=== PATIENT | male | born 2000 | race Caucasian/White ===

== ENCOUNTER 2019-06-08 01:06 | Inpatient (IN) | payer OTHER ==
[~2019-06-08] VITALS: Ht 175.3 cm; Wt 88.6 kg
[2019-06-08 02:19] LABS: HEMATOCRIT 48.2 % (42.0-52.0); HEMOGLOBIN 15.7 g/dl (13.5-17.5); MEAN CORPUSCULAR HEMOGLOBIN 28.9 pg (27.0-33.0); MEAN CORPUSCULAR HGB CONC 32.6 g/dl (32.0-36.5); MEAN CORPUSCULAR VOLUME 88.6 fl (80.0-96.0); PLATELET COUNT, AUTOMATED 244 10^3/uL (150-450); RED BLOOD COUNT 5.44 10^6/uL (4.30-6.10); WHITE BLOOD COUNT 9.1 10^3/uL (4.0-10.0)
[2019-06-08 03:10] LABS: ACETAMINOPHEN LEVEL < 2.0 UG/ML (10.0-30.0); ALBUMIN 4.4 GM/DL (3.2-5.2); ALT/SGPT 40 U/L (12-78); BILIRUBIN,DIRECT 0.2 MG/DL (0.0-0.2); BILIRUBIN,TOTAL 0.7 MG/DL (0.2-1.0); BLOOD UREA NITROGEN 8 MG/DL (7-18); CALCIUM LEVEL 9.1 MG/DL (8.5-10.1); CARBON DIOXIDE LEVEL 25 MEQ/L (21-32); CHLORIDE LEVEL 107 MEQ/L (98-107); CREATININE FOR GFR 0.85 MG/DL (0.70-1.30); ETHYL ALCOHOL (ETHANOL) < 0.003 % (0.000-0.010); GLOMERULAR FILTRATION RATE > 60.0 (>60); GLUCOSE, FASTING 99 MG/DL (70-100); POTASSIUM SERUM 4.2 MEQ/L (3.5-5.1); SODIUM LEVEL 140 MEQ/L (136-145); TOTAL PROTEIN 8.1 GM/DL (6.4-8.2)
[2019-06-08 07:25] LABS: AMPHETAMINES LEVEL URINE NEGATIVE (NEGATIVE); BARBITURATES URINE NEGATIVE (NEGATIVE); BENZODIAZEPINES URINE NEGATIVE (NEGATIVE); CANNABINOIDS URINE POSITIVE (NEGATIVE); COCAINE METABOLITE URINE POSITIVE (NEGATIVE); METHADONE URINE NEGATIVE (NEGATIVE); OPIATES URINE NEGATIVE (NEGATIVE); PHENCYCLIDINE URINE NEGATIVE (NEGATIVE)
[2019-06-08] MEDS ORDERED: MAALOX 30 ML SUSP *UDC PO PRN (18:45)
[2019-06-08] MEDS ORDERED: MOM 30ML SUSPENSION UDC PO PRN (18:45)
[2019-06-08] MEDS ORDERED: IBUPROFEN 400 MG TAB PO PRN (18:45)
[2019-06-09] MEDS: traZODone 50 MG TAB PO PRN ×2 (01:38→21:24)
[2019-06-09 01:47] VITALS: BP 128/78
[2019-06-09 06:35] VITALS: BP 122/69
[2019-06-09] MEDS ORDERED: INFLUENZA QUADRIVALENT PF VACCINE 0.5ML SYRINGE (90686) IM ONE (09:00)
[2019-06-09] MEDS: NICOTINE 21MG/24HR 1 EA TRANSDERMAL TD PRN (10:34)
--- NOTE | 2019-06-09 11:04 | MHHPEPDOC ---
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 He had reportedly attempted suicide by scratching himself on the wrist superficially, however was admitted out of an abundance of caution. 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 Reports significant trouble with multiple stressors, making him depressed, anxious, insomniac, and having other problems with controlling his mood, more irritable and reports difficulty wanting to go to work. He reports that none of his previous coping skills have helped and that he has sunk further into feeling worse. He reports that when he is around his girlfriend or family that he does not feel these symptoms and that his stress appears highly correlated. Review Of Systems Depression: As above. Anxiety: The patient denies any excessive worry associated with physical symptoms. They deny any experience of discreet panic in the past. Eliane: The patient denies any episodes of euphoria/dysphoria associated with decreased need for sleep, hedonism, talkatively or impulsivity lasting longer than 5 days. Psychotic: The patient denies any experiences of auditory or visual hallucinations. They deny any episodes of paranoia or delusional thinking in the past Trauma: The patient denies any traumatic events associated with nightmares or intrusive thoughts. Borderline: The patient screens negative for borderline personality at this junction. Past Psychiatric History Has no history of mental health diagnoses, no admission, no previous suicide attempts that have been independently confirmed. Has reported that he had an unusual situation where he jumped off a bridge, became unconscious and then woke, but had not told anyone. Allergies Please see below. Family Psychiatric History He reports he has a mother with bipolar disorder as well as an uncle and grandmother with mental health problems. Reports his mother smokes significant amounts of marijuana and his grandmother had attempted suicide as well as his mom. Social History The patient is currently an active duty soldier. He had served 2 years in the . 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 The patient has subsisted on income, graduated with a GED. Reports difficulty with the law as a juvenile, but no current legal problems. Self-described as heterosexual. Resides currently in the [facility]. Reports having a girlfriend for the last 18 months. He has never with no children. Denies any significant trauma in the past. Substance Abuse History Reports using cannabis at times, but reports that he has been "hot-boxed" by his mother who smokes cannabis in the car. Reports smoking close to 2 packs a day of cigarettes and had recently tried cocaine for the first time yesterday. Denies any opioids or other illicit drug use. Medical History Patient has no significant past medical history. Mental Status Examination General: Fair hygiene Speech: Spontaneous and fluid Thought processes: Linear and logical MSK: Smooth and coordinated gait, no signs of tremors or involuntary orofacial movements Thought content: Hopelessness Abstract reasoning, and computation: Intact Description of associations: Intact Description of abnormal or psychotic thoughts: Reports significant hopelessness, but no overt suicidality. Denies homicidal thoughts or signs, auditory or visual hallucinations, does not appear to be responding to internal stimuli Judgment: fair Insight: fair Orientation: Alert and orientated 3 Cognition: Grossly normal Recent and remote memory: Intact Attention span and concentration: Intact Fund of knowledge: Adequate Mood: "bad" Affect: Dysthymic with a constricted range Diagnoses Adjustment disorder with disruption of mood and conduct. Tobacco use disorder, severe. Cannabis use disorder, unspecified. Assessment and Plan Adjustment disorder: Start patient on Wellbutrin 150 mg daily extended release. Discussed risks, benefits, and potential side effects. Screening reveals no history of seizures or eating disorders. Discussed alternative options as well. Tobacco use disorder: Recommend nicotine replacement. Cannabis use disorder: Recommend further screening. Disposition The patient will need an inpatient admission likely lasting longer than 2 midnights in order to ascertain his risk factors and properly treat his significant depression. Problem List 1. Risk for suicide. 2. Depression. 3. Ineffective coping. Initial Treatment Plan 1. Patient was admitted on a 9.39 legal status. 2. Complete history was obtained. 3. With patients permission, family will be contacted and database will be expanded. 4. Patients medication regimen will be reviewed and changed accordingly. 5. Patient will be provided with protected environment. 6. Patient will be treated with individual, group, and milieu therapies. 7. Patient will receive supportive psych-education. 8. Discharge planning will commence immediately. 9. Outpatient follow-up treatment will be strongly recommended. 10. The initial treatment plan will focus initially on: Estimated Length Of Stay 3 days. Time Spent 70 minutes. Saturday Vital Signs Vital Signs Date Time Temp Pulse Resp B/P (MAP) Pulse Ox O2 Delivery O2 Flow Rate FiO2 06/09/19 06:35 98.0 73 12 122/69 (86) Room Air 06/09/19 01:47 98 Medications No Active Prescriptions or Reported Meds Allergies Coded Allergies: No Known Allergies (Unverified , 06/08/19) BRANDEN WHYTE DO Jun 09, 2019 11:04
[2019-06-09] MEDS: buPROPion **XL** TABLET 150MG (WELLBUTRIN XL) PO SCH (15:13)
[2019-06-09 16:26] VITALS: BP 128/76
--- NOTE | 2019-06-09 16:26 | HPEPDOC ---
General Date of Admission Jun 08, 2019 at 18:33 Date of Service: Jun 09, 2019 Chief Complaint The patient is a 19-year-old male admitted with a reason for visit of Unspecified Depressive Disorder. Source: Patient Exam Limitations: No limitations Timing/Duration: Getting worse Severity: Severe Associated Symptoms: Denies Symptoms History of Present Illness Pt is a 19 year old male admitted to the [facility] following a suicide attempt secondary to worsening depression. Pt has never sought help for his depression. He has attempted suicide in the past by 'tried to jump off a bridge.' Pt stated the reason for his attempt(s) were many. He is currently serving in the army. He has accepted treatment per psych and we discussed proper treatment of his depression to include medication and CBT. No further issues at this time. Home Medications No Active Prescriptions or Reported Meds Allergies Coded Allergies: No Known Allergies (Unverified , 06/08/19) Attending Note 19 yo man, member of the who was brought in by police after incidence of wrist cutting with intention to end his life, with a remote history of a prior attempt. Initial assessment was notable for normal CBC, BMP and tox screen that was positive for cannabinoids and cocaine although he denied illicit drug use on history. He was admitted to the [facility] for depression and suicidality and medicine was consulted for a full physical evaluation that was grossly normal. Internal medicine will sign off at this time, and defer mental health assessment and treatment to the psychiatry team. Past Medical History Medical History Unremarkable Surgical History [place] teeth removed Hernia repair Family History Significant Family History: Cancer (Kidney - mother (dec). Pancreatic - father ) Social History * Smoker: current smoker (1.5 PPD) Alcohol: occationally Drugs: cocaine (recently tried cocaine ) A-FIB/CHADSVASC A-FIB History Current/History of A-Fib/PAF?: No Current PO Anticoag Therapy: No Review of Systems Constitutional: Denies: Chills, Fever, Night Sweats Eyes: Denies: Pain ENT: Denies: Head Aches Skin: Denies: Rash Pulmonary: Denies: Dyspnea, Cough Cardiovascular: Denies: Chest Pain, Palpitations, Orthopnea, Paroxysmal Noc. Dyspnea, Lt Headedness Gastrointestinal: Denies: Nausea, Vomiting, Abdominal Pain, Diarrhea Genitourinary: Denies: Dysuria, Frequency, Incontinence Hematologic: Denies: Bruising Musculoskeletal: Denies: Neck Pain, Back Pain, Joint Pain, Muscle Pain, Spasms Neurological: Denies: Weakness Psych: Reports: Memory Issues, Thoughts of Self Harm; Denies: Depression Physical Examination General Exam: Positive: Alert, Cooperative, No Acute Distress Eye Exam: Positive: PERRLA, Conjunctiva & lids normal, EOMI; Negative: Sclera icteric ENT Exam: Positive: Atraumatic, Mucous membr. moist/pink, Pharynx Normal, Tongue Midline Neck Exam: Positive: Supple; Negative: thyromegaly Chest Exam: Positive: Clear to auscultation, Normal air movement Heart Exam: Positive: Rate Normal, Normal S1, Normal S2; Negative: Gallops, Murmurs, Rubs Telemetry: Positive: No significant arrhythmia Abdomen Exam: Positive: Soft, Tenderness; Negative: Normal bowel sounds Extremity Exam: Positive: Normal pulses; Negative: Clubbing, Cyanosis, Edema, Swelling Skin Exam: Positive: Nl turgor and temperature Neuro Exam: Positive: Normal Gait, Normal Speech, Strength at 5/5 X4 ext, Cranial Nerves 3-12 NL Psych Exam: Positive: Mood NL Vital Signs Vital Signs Date Time Temp Pulse Resp B/P (MAP) Pulse Ox O2 Delivery O2 Flow Rate FiO2 06/09/19 06:35 98.0 73 12 122/69 (86) Room Air 06/09/19 01:47 98 Assessment/Plan Pt is a 19 year old male admitted to the [facility] following a suicide attempt secondary to worsening depression. Pt has never sought help for his depression. He has attempted suicide in the past by 'tried to jump off a bridge.' Pt stated the reason for his attempt(s) were many. He is currently serving in the army. He has accepted treatment per psych and we discussed proper treatment of his depression to include medication and CBT. No further issues at this time. Depression with suicide attempt - management per psych Medicine will sign off at this time. Please re-consult as needed. Plan / VTE VTE Prophylaxis Ordered?: No DWIGHT MARSH PA-C Jun 09, 2019 16:26 KOTA ALBERT MD Jun 09, 2019 19:15
[2019-06-10 06:42] VITALS: BP 144/68
[2019-06-10] MEDS ORDERED: INFLUENZA QUADRIVALENT PF VACCINE 0.5ML SYRINGE (90686) IM ONE (09:00)
[2019-06-10] MEDS: buPROPion **XL** TABLET 150MG (WELLBUTRIN XL) PO SCH (09:05)
--- NOTE | 2019-06-10 11:03 | MHIPNPDOC ---
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 He had reportedly attempted suicide by alexandria phelps himself on the wrist superficially, however was admitted out of an abundance of caution. 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 Reports significant trouble with multiple stressors, making him depressed, anxious, insomniac, and having other problems with controlling his mood, more irritable and reports difficulty wanting to go to work. He reports that none of his previous coping skills have helped and that he has sunk further into feeling worse. He reports that when he is around his girlfriend or family that he does not feel these symptoms and that his stress appears highly correlated. Interval History The patient is met with today. He reports he is feeling much improved and is interested in leaving tomorrow. He reports that he felt the Wellbutrin was quite helpful. He feels more energized, engaged, and had a good night sleep the previous evening. He has been attending groups well, more engaged and reports he feels more hopeful about the future. The patient has had no major behavioral problems overnight and nursing staff reported an improvement. Review Of Systems General: Denies fever or appetite changes Cardiovascular: Denies Chest pain or palpations GI: Denies Nausea, vomiting, or bowel changes Respiratory: Denies shortness of breath or cough Neuro: Denies dizziness, tremors Derm: Denies any rashes or pruritus : Denies any dysuria or urinary problems MSK: Denies any muscle tightness or stiffness Psychotherapy None on this visit. Vital Signs Reviewed. Mental Status Examination General: Well dressed with good hygiene Speech: Spontaneous and fluid Thought processes: Linear and logical MSK: Smooth and coordinated gait, no signs of tremors or involuntary orofacial movements Thought content: Future orientated Abstract reasoning, and computation: Intact Description of associations: Intact Description of abnormal or psychotic thoughts: Denies any suicidal or homicidal ideation. Denies any auditory or visual hallucinations. Does not appear to be responding to internal stimuli. Does not appear to be endorsing any bizarre or paranoid ideation. Judgment: fair Insight: fair Orientation: Alert and orientated 3 Cognition: Grossly normal Recent and remote memory: Intact Attention span and concentration: Intact Fund of knowledge: Adequate Mood: "okay" Affect: Euthymic with a full range Diagnoses Adjustment disorder with disruption of mood and conduct. Tobacco use disorder, severe. Cannabis use disorder, unspecified. Assessment and Plan Adjustment disorder: Continue Wellbutrin 150 mg extended release. Tobacco use disorder: Recommend nicotine replacement. Cannabis use disorder: Recommend further screening. Disposition Discharge tomorrow. Time Spent 15 minutes. Saturday Vital Signs Vital Signs Date Time Temp Pulse Resp B/P (MAP) Pulse Ox O2 Delivery O2 Flow Rate FiO2 06/10/19 06:42 97.4 84 16 144/68 (93) 06/09/19 06:35 Room Air 06/09/19 01:47 98 Current Medications Current Medications Medications (Trade) Dose Ordered Sig/Marissa Route PRN Reason Start Time Stop Time Status Last Admin Dose Admin Al Hydrox/Mg Hydrox/Simethicone (Mylanta) 30 ml Q4HP PRN PO HEARTBURN/INDIGESTION 06/08/19 18:45 Bupropion HCl (Wellbutrin Xl) 150 mg DAILY PO 06/09/19 09:00 06/10/19 09:05 Home Med (Med Rec Complete!) ASDIRECTED XX 06/08/19 06:45 06/08/19 06:49 DC Ibuprofen (Advil) 400 mg Q6HP PRN PO PAIN 06/08/19 18:45 Magnesium Hydroxide (Milk Of Magnesia) 30 ml DAILYPRN PRN PO CONSTIPATION 06/08/19 18:45 Nicotine (Nicoderm Cq 21mg) 1 patch DAILYPRN PRN TD NICOTINE WITHDRAWAL 06/09/19 01:45 06/09/19 10:34 Trazodone HCl (Desyrel) 50 mg QHSP PRN PO INSOMNIA 06/08/19 18:45 06/09/19 21:24 Allergies Coded Allergies: No Known Allergies (Unverified , 06/08/19) BRANDEN WHYTE DO Jun 10, 2019 11:03
[2019-06-10] MEDS: NICOTINE 21MG/24HR 1 EA TRANSDERMAL TD PRN (13:00)
[2019-06-10 16:20] VITALS: BP 136/76
[2019-06-10] MEDS ORDERED: NICOINH INH (17:01)
[2019-06-10] MEDS ORDERED: NICO21PAT TD (17:01)
[2019-06-10] MEDS ORDERED: BUPR150T3 PO (17:01)
[2019-06-10] MEDS: traZODone 50 MG TAB PO PRN (21:30)
[2019-06-11 05:51] VITALS: BP 109/55
[2019-06-11] MEDS: buPROPion **XL** TABLET 150MG (WELLBUTRIN XL) PO SCH (09:39)
--- NOTE | 2019-06-11 10:14 | MHDSPDOC ---
[facility] Discharge Summary Discharge Summary DATE OF ADMISSION: Jun 08, 2019 at 18:33 DATE OF DISCHARGE: 06/11/19 Discharge Venkata Wilson MRN: N/A Date of : N/A Date of Service: 06/11/2019 Diagnoses Adjustment disorder with disruption of mood and conduct. Tobacco use disorder, severe. Cannabis use disorder, unspecified. 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 He had reportedly attempted suicide by scratching himself on the wrist superficially, however was admitted out of an abundance of caution. 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 Reports significant trouble with multiple stressors, making him depressed, anxious, insomniac, and having other problems with controlling his mood, more irritable and reports difficulty wanting to go to work. He reports that none of his previous coping skills have helped and that he has sunk further into feeling worse. He reports that when he is around his girlfriend or family that he does not feel these symptoms and that his stress appears highly correlated. Consultants Involved Hospitalist/PCP screening Treatment and Progress On The Unit The patient was admitted to the inpatient unit with concerns about his reported suicidal attempt upon presentation to the ER, he was subsequently assessed and started on Wellbutrin 150 mg daily with positive results. The patient was amenable, friendly, attended groups well, cooperative with treatment, with no major behavioral problems. He rapidly resolved his depression, lifted where he subsequently requested to be discharged on the day of discharge and did not meet criteria and thus was discharged in [place] back to the . 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 On the day of discharge, he has been denying any suicidal or homicidal ideation through the entirety of his psychiatric admission. He has a normal mental status exam, good insight and good judgment. He has been cooperative with treatment and discharge planning and thus will be discharged in [place] and he declines further voluntary admission. Mental Status Examination General: Well dressed with good hygiene Speech: Spontaneous and fluid Thought processes: Linear and logical MSK: Smooth and coordinated gait, no signs of tremors or involuntary orofacial movements Thought content: Future orientated Abstract reasoning, and computation: Intact Description of associations: Intact Description of abnormal or psychotic thoughts: Denies any suicidal or homicidal ideation. Denies any auditory or visual hallucinations. Does not appear to be responding to internal stimuli. Does not appear to be endorsing any bizarre or paranoid ideation. Judgment: fair Insight: fair Orientation: Alert and orientated 3 Cognition: Grossly normal Recent and remote memory: Intact Attention span and concentration: Intact Fund of knowledge: Adequate Mood: "okay" Affect: Euthymic with a full range Follow Up The social work team worked during the predischarge meeting in order to evaluate for further issues of lethality address them fully before discharge. They worked on safety planning with the patient's family members in order to ensure that the patient will have a safe and effective discharge. Time Spent The amount of time spent in the coordination of care for this patient was approximately 60 minutes. Vital Signs/I&Os Vital Signs Date Time Temp Pulse Resp B/P (MAP) Pulse Ox O2 Delivery O2 Flow Rate FiO2 06/11/19 05:51 98.8 83 16 109/55 (73) 06/09/19 06:35 Room Air 06/09/19 01:47 98 Medications Scheduled Bupropion Hcl (Bupropion Xl) 150 Mg Tab.er.24h, 150 MG PO DAILY for mood for 7 Days, #7 Nicotine (Nicotrol) 10 Mg Cartridge, 1 PUFF INH ASDIRECTED for tobacco for 30 Days, #1 Scheduled PRN Nicotine (Nicotine Patch) 21 Mg Patch.td24, 1 PATCH TD DAILYPRN PRN for NICOTINE WITHDRAWAL for 30 Days, #30 Allergies Coded Allergies: No Known Allergies (Unverified , 06/08/19) BRANDEN WHYTE DO Jun 11, 2019 10:14
== END 2019-06-11 13:00 | disposition home or self-care (01) | DRG 882 ==
LOC: M ED 01:06 → M ED INP 18:33 → M PSY 06-09 00:35
PROVIDERS: ADMIT Psychiatry & Neurology Addiction Medicine; ATTEND Psychiatry & Neurology Addiction Medicine
DX: F43.25 Adjustment disorder with mixed disturbance of emotions and conduct (principal); F17.210 Nicotine dependence, cigarettes, uncomplicated; F12.20 Cannabis dependence, uncomplicated; F32.9 Major depressive disorder, single episode, unspecified; Z81.8 Family history of other mental and behavioral disorders; Z91.82 Personal history of military deployment